=== PATIENT | male | born 1995 | race Caucasian/White ===

== ENCOUNTER → 2021-01-11 | Outpatient (REF) ==
[~2021-01-11] MED LIST: AMOX250C PO
--- NOTE | 2021-01-11 12:40 | Diagnostic Imaging Report ---
INDICATION: ANKLE PAIN COMPARISON: None. FINDINGS: 3 views of the right ankle were obtained. There is no acute fracture or dislocation. No focal osseous lesions are seen. There is moderate asymmetric lateral soft tissue swelling. There are no radiopaque foreign bodies. IMPRESSION: 1. Moderate asymmetric lateral soft tissue swelling, but no radiographic evidence of underlying acute fracture or dislocation of the right ankle. Dictated by: Dictated on workstation # [id number]
== END ==
LOC: OCC 12:24
PROVIDERS: ATTEND Nurse Practitioner Family
DX: M25.571 Pain in right ankle and joints of right foot (principal)
CPT/HCPCS: 73610